=== PATIENT | male | born 1980 ===

== ENCOUNTER 2017-04-03 17:09 | Emergency (ER) | payer OTHER ==
[2017-04-03 17:17] VITALS: BP 124/77
--- NOTE | 2017-04-03 17:54 | UC ---
Head Injury HPI - HPI Summary HPI Summary: 37 year old male with no significant pmhx here after head trauma. Patient reports he was struck by cabinet door when he stood up after bending down. He reports cut over his scalp that stopped bleeding. He went to work today and he was having difficulty concentrating and felt foggy and sad all day. No vomiting, no focal weakness, no headache. No loc. - History Of Current Complaint Chief Complaint: UCHeadInjury Stated Complaint: HEAD INJURY Time Seen by Provider: 04/03/17 17:34 Onset/Duration: Sudden Onset Character: Sharp Associated Signs And Symptoms: Positive: Negative, LOC (Time In Secs./Mins/Hrs) - Risk Factors SDH Risk Factor: Negative - Allergies/Home Medications Allergies/Adverse Reactions: Allergies Allergy/AdvReac Type Severity Reaction Status Date / Time No Known Allergies Allergy Verified 04/03/17 17:18 Home Medications: Home Medications NK [No Home Medications Reported] 04/03/17 [History Confirmed 04/03/17] PMH/Surg Hx/FS Hx/Imm Hx Previously Healthy: Yes - Surgical History Surgical History: Yes Surgery Procedure, Year, and Place: nasal fracture 20 years ago, cleft lip repair - Family History Known Family History: Negative: Other - PSORIASIS - Social History Alcohol Use: Weekly Alcohol Amount: 4 drinks per week Substance Use Type: Marijuana Substance Use Comment - Amount & Last Used: very occasional Smoking Status (MU): Never Smoked Tobacco Review of Systems Constitutional: Negative Skin: Negative Eyes: Negative ENT: Negative Respiratory: Negative Cardiovascular: Negative Gastrointestinal: Negative Genitourinary: Negative Motor: Negative Neurovascular: Negative Musculoskeletal: Negative Neurological: Negative Psychological: Negative, Depressed All Other Systems Reviewed And Are Negative: Yes Physical Exam Triage Information Reviewed: Yes Appearance: Well-Appearing, No Pain Distress Vital Signs: Initial Vital Signs Temp 37.8 C 04/03/17 17:14 Pulse 57 04/03/17 17:14 Resp 18 04/03/17 17:14 BP 124/77 04/03/17 17:14 Pulse Ox 99 04/03/17 17:14 Eye Exam: Normal ENT: Positive: Normal ENT inspection, Hearing grossly normal Neck exam: Normal Neck: Positive: Supple, Nontender Respiratory Exam: Normal Cardiovascular: Positive: RRR Abdomen Description: Positive: Nontender, No Organomegaly, Soft Neurological: Positive: Alert Skin Exam: Normal Skin: Positive: Other - scalp laceration 1cm, approximated with dried blood Head Injury Course/Dx - Course Course Of Treatment: Head injury. Patient has low risk of ICH. Gave patient and instructions for concussion. Laceration is superficial and already dried from this morning. His tetanus is uptodate. - Differential Dx/Diagnosis Differential Diagnosis/HQI/PQRI: Concussion Without LOC, Contusion Provider Diagnoses: Head trauma. Follow up with your primary care appt on 04/07 Discharge - Discharge Plan Condition: Good Disposition: HOME Patient Education Materials: Concussion (ED) Forms: *Work Release Referrals: No Primary Care Phys,NOPCP [Primary Care Provider] - Additional Instructions: Follow up with your primary doctor.
== END 2017-04-03 18:00 | disposition home or self-care (01) ==
LOC: UCEAST 17:09
DX: S09.90XA Unspecified injury of head, initial encounter (principal); W22.8XXA Striking against or struck by other objects, initial encounter; Y93.9 Activity, unspecified; Y92.9 Unspecified place or not applicable; Y99.9 Unspecified external cause status; Z72.89 Other problems related to lifestyle; F12.90 Cannabis use, unspecified, uncomplicated
CPT/HCPCS: 99211; G0463